=== PATIENT | male | born 2000 | race Caucasian/White ===

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

== ENCOUNTER 2021-07-11 17:35 | Emergency (ER) | payer OTHER, BC ==
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
--- NOTE | 2021-07-13 06:52 | CR ---
Left knee: 4 views left knee were obtained. Comparison: No prior knee study is available. Medial and lateral joint spaces are fairly well preserved. No joint effusion is seen. No acute fracture, dislocation or other bony abnormality is appreciated. Impression: 1. Nothing acute is seen on left knee exam. Diagnostic code #1
== END 2021-07-11 19:52 | disposition home or self-care (01) ==
LOC: JD.ED 17:35
DX: S80.02XA Contusion of left knee, initial encounter (principal); Z88.8 Allergy status to other drugs, medicaments and biological substances; Z72.0 Tobacco use; V29.9XXA Motorcycle rider (driver) (passenger) injured in unspecified traffic accident, initial encounter; Y93.55 Activity, bike riding
CPT/HCPCS: 73564-26-LT; 73564-LT; 99283; 99283-25

== ENCOUNTER 2024-07-01 16:38 | Emergency (ER) | payer BC | END 2024-07-01 18:16 | disposition home or self-care (01) | LOC: JD.ED 16:38 | DX: S89.92XA Unspecified injury of left lower leg, initial encounter (principal); F17.210 Nicotine dependence, cigarettes, uncomplicated; Z88.8 Allergy status to other drugs, medicaments and biological substances; W19.XXXA Unspecified fall, initial encounter | CPT/HCPCS: 73562-26-LT; 73562-LT; 99283 ==

== ENCOUNTER 2025-02-17 13:33 | Emergency (ER) | payer BC ==
[2025-02-17] MEDS: Ondansetron 4 MG/2 ML SDV IVPUSH ONE ×2 (14:20→17:54)
[2025-02-17] MEDS: Sodium Chloride 0.9% 1,000 ML IV STA (14:20)
[2025-02-17] MEDS: Sodium Chloride 0.9% 10 ML Syringe FLUSH PRN (14:30)
[2025-02-17 14:40] LABS: BASOPHILS ABSOLUTE AUTO 0.1 K/mm3 (0.0-0.2); BASOPHILS PERCENT AUTO 0.3 % (0.0-1.0); EOSINOPHILS ABSOLUTE AUTO 0.3 K/mm3 (0.0-0.4); EOSINOPHILS PERCENT AUTO 1.7 % (0.0-6.0); HEMATOCRIT 52.1 % (42.0-52.0); IMMATURE GRAN ABSOLUTE AUTO 0.07 K/mm3 (0.00-0.05); IMMATURE GRAN PERCENT AUTO 0.4 % (0.0-0.4); LYMPHOCYTES ABSOLUTE AUTO 0.7 K/mm3 (1.0-4.8); LYMPHOCYTES PERCENT AUTO 3.9 % (24.0-44.0); MEAN CORPUSCULAR HEMOGLOBIN 29.6 pg (28.0-32.0); MEAN CORPUSCULAR HGB CONC 34.5 g/dl (32.0-36.0); MEAN CORPUSCULAR VOLUME 85.7 fl (83.0-99.0); MEAN PLATELET VOLUME 10.2 fl (9.4-12.4); MONOCYTES PERCENT AUTO 5.9 % (0.0-8.0); NEUTROPHILS ABSOLUTE AUTO 14.7 K/mm3 (1.8-7.7); NEUTROPHILS PERCENT AUTO 87.8 % (41.0-71.0); PLATELET COUNT,PLT 291 K/mm3 (150-400); RED BLOOD CELL COUNT 6.08 M/mm3 (4.52-5.90); WHITE BLOOD CELL COUNT,WBC 16.76 K/mm3 (3.9-11.3)
[2025-02-17] MEDS: HYDROmorphone 0.5 MG/0.5 ML Syringe IVPUSH ONE (14:40)
[2025-02-17 14:55] LABS: A/G RATIO 1.2 (1-2); ALBUMIN 4.8 g/dl (3.4-5.0); BILIRUBIN TOTAL 1.1 mg/dL (0.2-1.0); BUN/CREATININE RATIO 15.6 (14-18); C-REACTIVE PROTEIN 0.36 mg/dL (<0.30); CREATININE 0.9 mg/dL (0.7-1.3); EST CRCL DRUG DOSING (CG) 156.72 mL/min; PROTEIN TOTAL,TP 8.9 g/dl (6.4-8.2)
[2025-02-17] MEDS: Alum Hydrox/Mag Hydrox/Simeth 30 ML, Lidocaine 2% 15 ML PO ONE (15:53)
[2025-02-17] MEDS: Famotidine 20 MG Tab PO ONE (17:15)
[2025-02-17] MEDS: Sucralfate Suspension 1 GM/10 ML Cup PO ONE (17:15)
== END 2025-02-17 18:00 | disposition home or self-care (01) ==
LOC: JD.ED 13:33
DX: K21.9 Gastro-esophageal reflux disease without esophagitis (principal); Z88.8 Allergy status to other drugs, medicaments and biological substances; Z79.899 Other long term (current) drug therapy
CPT/HCPCS: 36415; 76705; 80053; 82947; 83690; 85025; 86140; 93005; 96361; 96374; 96375; 96376; 99285; A9270; J2405; J7030; 93010; 99284